=== PATIENT | male | born 1990 | race Caucasian/White ===

== ENCOUNTER 2017-01-21 23:02 | Emergency (ER) | payer MEDICAID, OTHER ==
[~2017-01-21] VITALS: Ht 170.2 cm; Wt 74.4 kg
[2017-01-21 23:07] VITALS: Ht 170.2 cm; Wt 74.4 kg
[2017-01-22] MEDS ORDERED: LIDOCAINE 2%/EPI MPF (SDV) 20 ML VIAL INJ STA (00:43)
--- NOTE | 2017-01-22 00:43 | ERD ---
ER Documentation Chief Complaint Chief Complaint left arm swelling, reported getting bit by "something" on tuesday HPI This 26 yr male patient reports an infected bug bite, sx started 3 days ago as a insect bite , pruritic, pt reports scratching and and cause a scabbed, pt reports he knocked the scab off and wound started draining pis, fever last night , denies vomiting ROS All systems reviewed and are negative except as per history of present illness. Allergies Allergies: Coded Allergies: No Known Drug Allergies (Verified Allergy, Unknown, 01/22/17) Physical Exam Vitals Vital Signs Date Time Temp Pulse Resp B/P Pulse Ox O2 Delivery O2 Flow Rate FiO2 01/21/17 23:07 98.0 87 20 124/77 98 Vitals stable, triage notes reviewed Physical Exam Const: [] Head: Atraumatic Eyes: Normal Conjunctiva ENT: Normal External Ears, Nose and Mouth. Neck: Full range of motion..~ No meningismus. Resp: Clear to auscultation bilaterally Cardio: Regular rate and rhythm, no murmurs Abd: Soft, non tender, non distended. Normal bowel sounds Skin: No petechiae or rashes Back: No midline or flank tenderness Ext: No cyanosis, or edema Neur: Awake and alert Psych: Normal Mood and Affect Result Diagram: 01/22/17 0105 Results 24 hrs Laboratory Tests Test 01/22/17 01:05 White Blood Count 10.810^3/ul Red Blood Count 4.3210^6/ul Hemoglobin 12.5g/dl Hematocrit 37.2% Mean Corpuscular Volume 86.1fl Mean Corpuscular Hemoglobin 28.9pg Mean Corpuscular Hemoglobin Concent 33.6g/dl Red Cell Distribution Width 12.0% Platelet Count 43426^3/UL Mean Platelet Volume 9.3fl Neutrophils % 59.9% Lymphocytes % 24.7% Monocytes % 11.4% Eosinophils % 3.0% Basophils % 0.6% Nucleated Red Blood Cells % 0.0/100WBC Neutrophils # 6.510^3/ul Lymphocytes # 2.710^3/ul Monocytes # 1.210^3/ul Eosinophils # 0.310^3/ul Basophils # 0.110^3/ul Nucleated Red Blood Cells # 0.010^3/ul Current Medications Medications (Trade) Dose Ordered Sig/Leta Route PRN Reason Start Time Stop Time Status Last Admin Dose Admin Diphtheria/ Tetanus/Acell Pertussis (Adacel) 0.5 ml ONCE ONCE IM 01/22/17 01:00 01/22/17 01:01 DC 01/22/17 01:04 Lidocaine/ Epinephrine (Xylocaine 2%/ Epi Mpf(Sdv)) 20 ml ONCE STAT INJ 01/22/17 00:43 01/22/17 01:03 DC Ibuprofen (Motrin) 600 mg ONCE ONCE PO 01/22/17 01:00 01/22/17 01:00 DC Cephalexin (Keflex) 500 mg ONCE ONCE PO 01/22/17 01:00 01/22/17 01:01 DC 01/22/17 01:08 Trimethoprim/ Sulfamethoxazole (Bactrim (Ds)) 1 tab ONCE ONCE PO 01/22/17 01:00 01/22/17 01:01 DC 01/22/17 01:08 Acetaminophen/ Hydrocodone Bitart ([place] (5/325)) 1 tab ONCE ONCE PO 01/22/17 01:00 01/22/17 01:01 DC 01/22/17 01:08 Lidocaine/ Epinephrine (Xylocaine 1%/ Epi (Pf)) 30 ml STK-MED ONCE .ROUTE 01/22/17 00:58 01/22/17 00:59 DC Lidocaine/ Epinephrine (Xylocaine 1%/ Epi (Pf)) 30 ml ONCE STAT INJ 01/22/17 01:01 01/22/17 01:03 DC No evidence of acute infection or hemorrhage hemoglobin and hematocrit noted to be slightly abnormal at 12.5, 37.2, these are not significant changes no intervention indicated at this time. Procedures/MDM PROCEDURE: Left arm ultrasound CLINICAL INDICATION: Soft tissue abscess. TECHNIQUE: With the sagittal images of the left arm were obtained with a linear ray transducer. COMPARISON: None. FINDINGS: Small amount of free fluid is present within the soft tissues at the area of interest measuring 13 mm x 4 mm. There is no evidence of a discrete abscess. IMPRESSION: 1. Small amount of free fluid within the soft tissues of the left arm measuring 13 x 4 mm without evidence of a discrete abscess. Electronically viewed and signed by Lu Becker Physician on 01/22/2017 02 :16 This 26-year-old male patient presents to emergency department for evaluation of left arm swelling, erythema, pain, and serous drainage from insect bite. Patient reports symptoms started 3 days ago he was bit by an insect it was itchy. Patient reports scratching at his skin causing a scab to form on the once red raised papule, patient reports area became sore and he knocked off scab , purulent discharge change from wound. Patient reports that swelling has increased, feels a numb sensation to fingertips, denies nausea, vomiting, fever , or chills. Emergency room course includes history and physical exam, negative for neurologic dysfunction, capillary refill is brisk, hand and fingers are edematous, full range of motion, I have low suspicion for compartment syndrome, Cardona-Mode syndrome, or osteomyelitis, and ultrasound to evaluate suspected abscess, radiology impression small amount of free fluid within soft tissue of left arm measuring 13 x 4 mm without evidence of a discrete abscess. Patient given Keflex 500 mg, double strength Bactrim while in emergency department, patient reports improvement of tingling sensation to fingertips hour after medication ingested. Plan to discharge patient home after wound care with teaching. New Keflex 500 mg 1 tab p.o. 4 times daily 10 days, ibuprofen 600 mg 1 tab p.o. 4 times daily and pain. Change dressing over the wound at least once a day. If dressing becomes wet change immediately. He is on the soap and water to clean your wound. Use over- the-counter antibiotic ointment twice a day. Observe 1 daily for signs of infection which include increased pain, increased redness especially redness spreading towards your heart, post drainage or increased swelling. If there are any of these signs or if you are not sure return as soon as possible. Into emergency department for wound check in 48 hours. Take all medication as prescribed. Patient is stable with no new complaints during ER course, clinically there is no current evidence to suggest Cardona-Mode syndrome, necrotizing fasciitis, compartment syndrome, osteomyelitis or any other emergent condition appearing to require further evaluation or hospitalization. I feel the patient is stable for discharge at this time. I have discussed results, examination findings, the treatment plan with the patient and family present prior to discharge. Indications for emergent reevaluation, side effects of medication were also discussed. All questions were answered. Patient verbalizes understanding and agrees with plan of care. Departure Diagnosis: Primary Impression: Cellulitis Site of cellulitis: extremity Site of cellulitis of extremity: upper extremity Laterality: left Qualified Code: L03.114 - Cellulitis of left upper extremity Condition: Good Patient Instructions: Cellulitis, Dressing Change Referrals: [facility] Additional Instructions: Thank you for for coming to [facility] for your care today. Please ask your nurse or provider if you have questions about your care today and do not leave until all your questions have been answered. Please use any medications given as directed and follow-up with your doctor (or the doctor you were referred to) in the next 2-3 days. If you do not have a primary care doctor you may follow up at the [facility] [place] (listed below). You may also use motrin and tylenol as needed for fever and/or pain unless instructed otherwise by your provider or nurse. Indications for more urgent follow-up have been discussed, but you may return to the Emergency Department at ANY time for any worrisome or worsening symptoms. If you have abdominal pain, please know that no test or exam you received is perfect and you should follow up within 8 hours for continued pain. If you had any imaging studies today, such as an X-Ray or CT Scan, these studies will be reviewed later by a radiologist. You will be called if there are important findings that were not identified today, so make sure the contact information you provided at registration is correct. If you received any narcotic pain control medicine today, such as Vicodin, Morphine or Dilaudid, your coordination and judgment may be affected for a number of hours. Please do not drive or operate heavy machinery, and you may want someone to assist you at home. If you were given a prescription for narcotic medication, be aware that it is very addictive- use sparingly and only if necessary. ANGEL LEMOS Jan 22, 2017 00:43
[2017-01-22] MEDS ORDERED: LIDOCAINE 1%/EPI 30 ML INJ ONE (00:58)
[2017-01-22] MEDS ORDERED: IBUPROFEN 600 MG TAB PO ONE (01:00)
[2017-01-22] MEDS ORDERED: HYDROCODONE/APAP (5/325) TAB PO ONE (01:00)
[2017-01-22] MEDS ORDERED: CEPHALEXIN 500 MG CAP PO ONE (01:00)
[2017-01-22] MEDS ORDERED: DIPHTH/TET/ACEL PERTUSS (ADULT) 0.5 ML VIAL IM ONE (01:00)
[2017-01-22] MEDS ORDERED: TRIMETHOPRIM/SULFAMETHOX (DS) TAB PO ONE (01:00)
[2017-01-22] MEDS ORDERED: LIDOCAINE 1%/EPI 30 ML INJ INJ STA (01:01)
--- NOTE | 2017-01-22 02:16 | RADRPT ---
PROCEDURE: Left arm ultrasound CLINICAL INDICATION: Soft tissue abscess. TECHNIQUE: With the sagittal images of the left arm were obtained with a linear ray transducer. COMPARISON: None. FINDINGS: Small amount of free fluid is present within the soft tissues at the area of interest cheryl uring 13 mm x 4 mm. There is no evidence of a discrete abscess. IMPRESSION: 1. Small amount of free fluid within the soft tissues of the left arm measuring 13 x 4 mm without ev idence of a discrete abscess. RPTAT: HRSR Physician Oscar Date Time Electronically viewed and signed by Physician Oscar on 01/22/2017 02:16 RR/
[2017-01-22] MEDS ORDERED: CEPH-443 PO (03:19)
[2017-01-22] MEDS ORDERED: SULF1TAB31 PO (03:20)
[2017-01-22] MEDS ORDERED: IBUP-1542 PO (03:20)
== END 2017-01-22 03:33 | disposition home or self-care (01) ==
LOC: FTE 23:02
DX: L03.114 Cellulitis of left upper limb (principal); Z23 Encounter for immunization
CPT/HCPCS: 76536; 85025; 90471; 90715; Z7502; Z7610